=== PATIENT | male | born 1940 | race Caucasian/White ===

== ENCOUNTER 2022-05-08 18:55 | Emergency (ER) | payer MEDICARE ==
[2022-05-08 19:46] LABS: BASOPHIL 0.7 % (0-2); EOSINOPHIL 2.3 % (0-7); HCT 38.9 % (42.0-52.0); HGB 13.1 g/dl (13.2-18.0); LYMPHOCYTE 7.9 % (15-48); MCH 31.3 pg (25.0-31.0); MCHC 33.7 g/dL (32.0-36.0); MCV 92.8 fL (78.0-100.0); MPV 9.5 fL (6.0-9.5); NEUTROPHIL 76.6 % (41-80); NRBC 0; PLT 149 K/uL (150-400); RBC 4.19 M/uL (4.70-6.00); RDW 12.3 % (11.5-14.0); WBC 4.4 K/uL (4.0-10.5)
[2022-05-08 20:01] LABS: ALBUMIN 3.6 g/dL (3.4-5.0); BILIRUBIN - TOTAL 0.3 mg/dL (0.2-1.0); BUN/CREAT RATIO (CALC) 23.3 RATIO; CREATININE 0.9 mg/dL (0.67-1.17); GLOBULIN (CALCULATION) 3.6 g/dL; POTASSIUM 3.9 mmol/L (3.5-5.1); TOTAL PROTEIN 7.2 g/dL (6.4-8.2)
[2022-05-08 20:16] LABS: BILIRUBIN NEGATIVE (NEGATIVE); BLOOD NEGATIVE Ery/uL (NEGATIVE); CLARITY CLEAR (CLEAR); COLOR YELLOW (YELLOW); GLUCOSE (U) NORMAL (NORMAL); LEUKOCYTES NEGATIVE Leu/uL (NEGATIVE); NITRITE NEGATIVE (NEGATIVE); PROTEIN NEGATIVE (NEGATIVE); SPECIFIC GRAVITY 1.015 (1.001-1.030); UROBILINOGEN 0.2 mg/dL (0.2-1.0)
[2022-05-08 20:22] LABS: INFLUENZA A NAA NEGATIVE (NEGATIVE)
[2022-05-08 20:44] LABS: CORONAVIRUS 2019 SARS-COV-2 POSITIVE (NEGATIVE)
[2022-05-08] MEDS ORDERED: TESSALON PERLE100 MG PO (20:59)
[2022-05-08] MEDS ORDERED: PAXLOVID 150-11 EACH PO (20:59)
== END 2022-05-08 21:30 | disposition home or self-care (01) ==
LOC: FER 18:55
PROVIDERS: Physician Assistant
DX: U07.1 COVID-19 (principal); I10 Essential (primary) hypertension; E11.9 Type 2 diabetes mellitus without complications; E78.5 Hyperlipidemia, unspecified; Z79.899 Other long term (current) drug therapy
CPT/HCPCS: 36415; 71046; 80053; 81003; 84145; 85025; U0002